=== PATIENT | female | born 1990 | race Caucasian/White ===

== ENCOUNTER 2016-11-28 20:11 | Emergency (ER) | payer OTHER ==
[~2016-11-28] VITALS: Ht 177.8 cm; Wt 109.5 kg
[~2016-11-28 20:11] MED LIST: ABILIFY20 MG PO; AMBIEN10 MG PO; AMOXICILLIN500 M1 PO; ATARAX,VISTARIL25 MG PO; BENZTROPINE ME0.5 MG PO; CELEXA10 M1 PO; CITALOPRAM HBR20 MG PO; CLONAZEPAM0.5 MG PO; DEPAKOTE250 MG PO; DESITIN CLEAR O99 GM TP; EFFEXOR25 MG PO; FIORICET,ESG1 TABLET PO; HALOPERIDOL5 MG PO; KEFLEX500 MG PO; KEPPRA500 MG PO; KEPPRA750 MG PO; LEVETIRACETAM1000 MG PO; LEVETIRACETAM750 MG PO; METROGEL-VAGINA70 GM VG; MOTRIN600 MG PO; MOTRIN800 MG PO; NAPROSYN500 MG PO; NOHOMEMEDS; OXAYDO5 MG PO; PEN-VEE K,VEET500 MG PO; RISPERDAL0.5 MG PO; RISPERDAL4 MG PO; SERTRALINE HCL50 MG PO; TOPIRAMATE25 MG PO; VENLAFAXINE HC150 M1 PO; ZOFRAN ODT8 MG PO
[2016-11-28 21:36] VITALS: BP 128/89
== END 2016-11-28 23:17 | disposition left against medical advice (07) ==
LOC: EME 20:11
DX: R07.9 Chest pain, unspecified (principal); R06.02 Shortness of breath; R56.9 Unspecified convulsions; F32.9 Major depressive disorder, single episode, unspecified; F17.200 Nicotine dependence, unspecified, uncomplicated
CPT/HCPCS: 80053; 83690; 84702; 85027; 93005; 99281; 99284

== ENCOUNTER 2017-06-10 03:08 | Observation (INO) | payer OTHER ==
[~2017-06-10] VITALS: Ht 175.3 cm; Wt 101.7 kg
[2017-06-10 03:51] LABS: EOSINOPHIL (%) 2.3 % (0-5); EOSINOPHIL COUNT 0.2 K/uL (0-0.3); HEMATOCRIT 39.7 % (36.0-46.0); IMMATURE GRANULOCYTE (%) 0.4 % (0.0-0.7); INSTRUMENT ABS NEUTROPHIL CT 7.1 K/uL; LYMPHOCYTE COUNT 1.5 K/uL (1.0-2.8); MCH 31.7 PG (29.0-34.0); MCHC 36.5 G/DL (30.0-36.0); MCV 86.9 FL (83-99); MEAN PLAT.VOLUME 10.1 uM^3 (9.5-12.4); MONOCYTE (%) 6.4 % (3-12); MONOCYTE COUNT 0.6 K/uL (0-0.8); NEUTROPHIL (%) 74.4 % (45-76); NEUTROPHIL COUNT 7.1 K/uL (1.8-6.4); PLATELET COUNT 385 K/uL (156-360); RBC DIS.WIDTH-CV 12.5 % (11.8-14.6); RBC DIS.WIDTH-SD 39.3 % (39-53); RED BLOOD COUNT 4.57 M/uL (3.80-5.20); WHITE BLOOD COUNT 9.5 K/uL (4.1-10.2)
[2017-06-10 03:56] LABS: CREATININE 0.9 mg/dL (0.6-1.3); POTASSIUM 3.3 mEq/L (3.7-5.4)
[2017-06-10 04:01] LABS: CHLORIDE 109 mEq/L (99-109); POTASSIUM 3.4 mEq/L (3.7-5.4); SODIUM 139 mEq/L (136-147)
[2017-06-10 04:03] LABS: GLUCOSE 122 mg/dL (70-99)
[2017-06-10 04:05] LABS: ANION GAP 8 MEQ/L (2-14)
[2017-06-10 04:06] LABS: SERUM ETHYL ALCOHOL < 10 mg/dL
[2017-06-10 04:07] LABS: GFR ESTIMATE (CALCULATED) > 59 mL/min/
[2017-06-10 04:08] LABS: ALKALINE PHOSPHATASE 74 IU/L (3-129)
[2017-06-10 04:09] LABS: UREA NITROGEN (BUN) 7 mg/dL (9-23)
[2017-06-10 04:10] LABS: TROP-I INTERPRETATION NEGATIVE; TROPONIN-I < 0.01 ng/mL (0.0-0.30)
[2017-06-10 04:11] LABS: CREATINE KINASE 65 IU/L (1-294); SALICYLATE < 5.0 MG/DL (15-30); TOTAL CK 65 IU/L (1-294)
[2017-06-10 04:17] LABS: QUANTITATIVE HCG < 4.0 MIU/ML
[2017-06-10 04:18] LABS: CK-MB 0.7 ng/mL (0.0-4.9)
[2017-06-10 07:34] VITALS: BP 120/78
[2017-06-10 11:25] VITALS: BP 113/71
[2017-06-10 11:41] LABS: LYME DISEASE SEROLOGY SCREEN NEGATIVE (NEGATIVE)
[2017-06-10] MEDS ORDERED: TOPIRAMATE100 MG PO (14:16)
[2017-06-10] MEDS ORDERED: DULERA 100 MCG/13 GM IH (14:17)
[2017-06-10] MEDS ORDERED: VENTOLIN HFA18 GM IH (14:17)
[2017-06-10 15:52] VITALS: BP 124/58
[2017-06-10 20:00] VITALS: BP 137/71
[2017-06-10 23:23] VITALS: BP 103/51
[2017-06-11 03:20] VITALS: BP 97/57
[2017-06-11 07:45] VITALS: BP 99/62
[2017-06-11 09:24] LABS: ANION GAP 4 MEQ/L (2-14); CHLORIDE 112 MEQ/L (99-109); GFR ESTIMATE (CALCULATED) > 59 mL/min/; GLUCOSE 92 mg/dL (70-99); SAMPLE HEMOLYSIS CHECK 0; SAMPLE ICTERIC CHECK 0; SAMPLE LIPEMIA CHECK 0; SODIUM 141 MEQ/L (136-147); UREA NITROGEN (BUN) 7 mg/dL (9-23)
[2017-06-11] MEDS ORDERED: TOPIRAMATE25 MG PO (11:00)
[2017-06-11] MEDS ORDERED: FLUOXETINE HCL20 MG PO (11:01)
[2017-06-11] MEDS ORDERED: FAMOTIDINE20 MG PO (11:01)
[2017-06-11] MEDS ORDERED: LEVETIRACETAM500 MG PO (11:01)
[2017-06-11] MEDS ORDERED: ARIPIPRAZOLE5 MG PO (11:01)
[2017-06-11 12:01] VITALS: BP 107/67
== END 2017-06-11 13:03 | disposition home or self-care (01) ==
LOC: EME 03:08 → EDOF 06:17 → 5WEST 06:17 → ENRESERV 06:18 → 5WEST 07:21
PROVIDERS: Emergency Medicine; Internal Medicine
DX: R56.9 Unspecified convulsions (principal); R00.1 Bradycardia, unspecified; F60.3 Borderline personality disorder; F33.1 Major depressive disorder, recurrent, moderate; T42.6X6A Underdosing of other antiepileptic and sedative-hypnotic drugs, initial encounter; W19.XXXA Unspecified fall, initial encounter; E87.6 Hypokalemia; F17.210 Nicotine dependence, cigarettes, uncomplicated; Z66 Do not resuscitate; Z88.6 Allergy status to analgesic agent
CPT/HCPCS: 70450; 72125; 80047; 80048; 80053; 81003; 82550; 82553; 83605; 84484; 84702; 85025; 86618; 93005; 95819; G0378; G0480; J1650; J2310; J7030